=== PATIENT | female | born 1980 | race Native Hawaiian/Other Pacific Islander ===

== ENCOUNTER 2019-03-03 08:21 | Outpatient (CLI) | payer BC ==
[2019-03-03 08:34] LABS: PLATELET COUNT 221 K/uL (152-353)
[2019-03-03 09:23] LABS: POTASSIUM 4.1 mmol/L (3.6-5.2)
== END 2019-03-03 19:29 | disposition home or self-care (01) ==
LOC: LABW 08:21
PROVIDERS: Internal Medicine
DX: Z70.0 Counseling related to sexual attitude (principal); E10.9 Type 1 diabetes mellitus without complications; Z79.899 Other long term (current) drug therapy
CPT/HCPCS: 36415; 80053; 80061; 83036; 84436; 84443; 85027

== ENCOUNTER 2019-03-25 09:27 | Outpatient (CLI) | payer OTHER | END 2019-03-25 21:02 | disposition home or self-care (01) | LOC: RAD 09:27 | DX: M79.642 Pain in left hand (principal); M79.641 Pain in right hand; M25.532 Pain in left wrist; M25.531 Pain in right wrist; E10.21 Type 1 diabetes mellitus with diabetic nephropathy; E10.649 Type 1 diabetes mellitus with hypoglycemia without coma; E10.65 Type 1 diabetes mellitus with hyperglycemia; M54.30 Sciatica, unspecified side; M54.2 Cervicalgia ==

== ENCOUNTER 2019-09-21 11:31 | Outpatient (CLI) | payer BC | END 2019-09-21 19:26 | disposition home or self-care (01) | LOC: MAMMO 11:31 | DX: Z12.31 Encounter for screening mammogram for malignant neoplasm of breast (principal) ==

== ENCOUNTER 2020-01-07 08:19 | Outpatient (CLI) | payer BC ==
[2020-01-07 08:43] LABS: PLATELET COUNT 231 K/uL (152-353)
[2020-01-07 09:02] LABS: POTASSIUM 4.3 mmol/L (3.6-5.2)
== END 2020-01-07 22:42 | disposition home or self-care (01) ==
LOC: LABW 08:19
PROVIDERS: Nurse Practitioner Family
DX: Z00.00 Encounter for general adult medical examination without abnormal findings (principal); E10.9 Type 1 diabetes mellitus without complications
CPT/HCPCS: 36415; 80053; 80061; 83036; 84439; 84443; 85027

== ENCOUNTER 2020-12-05 13:18 | Outpatient (CLI) | payer BC | END 2020-12-05 22:45 | disposition home or self-care (01) | LOC: MAMMO 13:18 | PROVIDERS: ATTEND Obstetrics & Gynecology | DX: Z12.31 Encounter for screening mammogram for malignant neoplasm of breast (principal) ==

== ENCOUNTER 2021-01-23 08:04 | Outpatient (CLI) | payer BC ==
[2021-01-23 08:39] LABS: PLATELET COUNT 191 K/uL (152-353)
[2021-01-23 08:43] LABS: POTASSIUM 4.1 mmol/L (3.6-5.2)
== END 2021-01-23 21:33 | disposition home or self-care (01) ==
LOC: LABW 08:04
PROVIDERS: ATTEND Nurse Practitioner
DX: Z01.84 Encounter for antibody response examination (principal); E34.9 Endocrine disorder, unspecified; N95.1 Menopausal and female climacteric states; R68.82 Decreased libido; E03.9 Hypothyroidism, unspecified; E55.9 Vitamin D deficiency, unspecified; D51.8 Other vitamin B12 deficiency anemias; F41.8 Other specified anxiety disorders; G47.00 Insomnia, unspecified; D64.9 Anemia, unspecified; E78.5 Hyperlipidemia, unspecified; R53.83 Other fatigue
CPT/HCPCS: 36415; 80053; 80061; 82306; 82533; 82607; 82670; 82728; 83001; 83036; 83540; 83550; 83735; 84403; 84436; 84443; 84481; 84482; 85027; 86376; 86769

== ENCOUNTER 2021-03-10 08:13 | Outpatient (CLI) | payer BC ==
[2021-03-10 08:30] LABS: PLATELET COUNT 229 K/uL (152-353)
[2021-03-10 09:02] LABS: POTASSIUM 4.3 mmol/L (3.6-5.2)
== END 2021-03-10 22:38 | disposition home or self-care (01) ==
LOC: LABW 08:13
PROVIDERS: ATTEND Nurse Practitioner
DX: E34.9 Endocrine disorder, unspecified (principal); E03.9 Hypothyroidism, unspecified; E55.9 Vitamin D deficiency, unspecified; D51.8 Other vitamin B12 deficiency anemias; E61.2 Magnesium deficiency; F41.8 Other specified anxiety disorders; D64.89 Other specified anemias; R53.83 Other fatigue
CPT/HCPCS: 36415; 80053; 82306; 82607; 82728; 83540; 83550; 83735; 84443; 84481; 85027

== ENCOUNTER 2022-03-13 08:35 | Outpatient (CLI) | payer BC ==
[2022-03-13 08:50] LABS: PLATELET COUNT 214 K/uL (152-353)
[2022-03-13 09:06] LABS: POTASSIUM 4.4 mmol/L (3.6-5.2)
== END 2022-03-13 19:00 | disposition home or self-care (01) ==
LOC: LABW 08:35
PROVIDERS: ATTEND Nurse Practitioner Family
DX: I34.1 Nonrheumatic mitral (valve) prolapse (principal); G62.9 Polyneuropathy, unspecified; E10.9 Type 1 diabetes mellitus without complications
CPT/HCPCS: 36415; 80053; 80061; 83036; 84436; 84443; 85027

== ENCOUNTER 2022-04-02 10:57 | Outpatient (CLI) | payer BC | END 2022-04-02 19:01 | disposition home or self-care (01) | LOC: MAMMO 10:57 | PROVIDERS: ATTEND Obstetrics & Gynecology | DX: Z12.31 Encounter for screening mammogram for malignant neoplasm of breast (principal) ==

== ENCOUNTER 2022-04-25 08:19 | Outpatient (CLI) | payer BC | END 2022-04-25 18:53 | disposition home or self-care (01) | LOC: LABW 08:19 | PROVIDERS: ATTEND Nurse Practitioner | DX: G47.00 Insomnia, unspecified (principal); R53.83 Other fatigue; E06.3 Autoimmune thyroiditis; D89.89 Other specified disorders involving the immune mechanism, not elsewhere classified; E34.9 Endocrine disorder, unspecified; E03.4 Atrophy of thyroid (acquired); N95.1 Menopausal and female climacteric states; E55.9 Vitamin D deficiency, unspecified; N94.6 Dysmenorrhea, unspecified; Z79.899 Other long term (current) drug therapy; Z13.89 Encounter for screening for other disorder | CPT/HCPCS: 36415; 82306; 82533; 82607; 82627; 82670; 82728; 83525; 83527; 83540; 83550; 83735; 83789; 84144; 84270; 84402; 84403; 84439; 84443; 84481; 86376; 86800 ==

== ENCOUNTER 2022-05-01 07:56 | Outpatient (CLI) | payer BC | END 2022-05-01 18:49 | disposition home or self-care (01) | LOC: LABW 07:56 | PROVIDERS: ATTEND Nurse Practitioner | DX: G47.00 Insomnia, unspecified (principal); R53.83 Other fatigue; E06.3 Autoimmune thyroiditis; D89.89 Other specified disorders involving the immune mechanism, not elsewhere classified; E34.9 Endocrine disorder, unspecified; E03.4 Atrophy of thyroid (acquired); N95.1 Menopausal and female climacteric states; E55.9 Vitamin D deficiency, unspecified; N94.6 Dysmenorrhea, unspecified; Z79.899 Other long term (current) drug therapy; Z13.89 Encounter for screening for other disorder | CPT/HCPCS: 36415; 83789 ==

== ENCOUNTER 2022-07-17 07:48 | Outpatient (CLI) | payer BC | END 2022-07-17 19:13 | disposition home or self-care (01) | LOC: LABW 07:48 | PROVIDERS: ATTEND Nurse Practitioner | DX: R53.83 Other fatigue (principal); R73.09 Other abnormal glucose; E03.8 Other specified hypothyroidism; E34.8 Other specified endocrine disorders; N95.1 Menopausal and female climacteric states; E55.9 Vitamin D deficiency, unspecified; Z13.89 Encounter for screening for other disorder | CPT/HCPCS: 36415; 82306; 82607; 82627; 82670; 83525; 83527; 83789; 84144; 84402; 84403; 84439; 84443; 84481; 86376; 86800 ==

== ENCOUNTER 2022-09-25 08:09 | Outpatient (CLI) | payer BC ==
[2022-09-25 08:44] LABS: PLATELET COUNT 217 K/uL (152-353)
[2022-09-25 09:08] LABS: POTASSIUM 4.2 mmol/L (3.6-5.2)
== END 2022-09-25 20:56 | disposition home or self-care (01) ==
LOC: LABW 08:09
PROVIDERS: ATTEND Nurse Practitioner
DX: R53.83 Other fatigue (principal); E03.8 Other specified hypothyroidism; E34.8 Other specified endocrine disorders; N95.1 Menopausal and female climacteric states; E55.9 Vitamin D deficiency, unspecified; I34.1 Nonrheumatic mitral (valve) prolapse; G62.89 Other specified polyneuropathies; E10.9 Type 1 diabetes mellitus without complications
CPT/HCPCS: 36415; 80053; 80061; 82306; 82607; 83036; 83789; 84436; 84439; 84443; 84481; 85027; 86376; 86800

== ENCOUNTER 2023-06-10 13:16 | Outpatient (CLI) | payer BC | END 2023-06-10 21:32 | disposition home or self-care (01) | LOC: MAMMO 13:16 | PROVIDERS: ATTEND Obstetrics & Gynecology | DX: Z12.31 Encounter for screening mammogram for malignant neoplasm of breast (principal) ==